=== PATIENT | female | born 1985 | race Caucasian/White ===

== ENCOUNTER 2017-01-16 14:17 | Outpatient (CLI) | payer BC ==
[~2017-01-16] VITALS: Ht 162.6 cm; Wt 76.0 kg
[2017-01-16 14:29] VITALS: BP 121/85
[2017-01-16 15:59] VITALS: BP 130/78
--- NOTE | 2017-01-16 16:16 | REP ---
Clinical: Vaginal bleeding. Technique: Transabdominal and transvaginal obstetrical ultrasound with color Doppler evaluation. Findings: Examination demonstrates a single live intrauterine in cephalic presentation. heart rate equals 140 beats per minute. The placenta is identified anteriorly and grade 1 without evidence for placenta previa or abruption. Amniotic fluid volume is within normal limits (BHAVANA=13.6). Cervix measures 3.4 cm length and appears closed. A posterior/left lateral subchorionic hemorrhage is identified in the lower uterine segment measuring approximately 10.6 x 5.4 x 8.0 cm roughly 1.7 cm from the closed internal os. Impression: Left lower uterine segment subchorionic hemorrhage. Live intrauterine in cephalic presentation. Signed by Nadeem Mejia MD 01/16/2017 04:07 P
[2017-01-16 16:22] LABS: MEAN CORPUSCULAR HEMOGLOBIN 30.3 pg (27.0-33.0); MEAN CORPUSCULAR HGB CONC 33.3 g/dl (32.0-36.5); MEAN CORPUSCULAR VOLUME 91.2 fl (80.0-96.0); RED CELL DISTRIBUTION WIDTH 12.7 % (11.5-14.5); WHITE BLOOD COUNT 13.3 K/mm3 (4.0-10.0)
[2017-01-16 17:48] VITALS: BP 132/81
[2017-01-16 21:24] VITALS: BP 117/71
[2017-01-16 23:36] VITALS: BP 117/73
[2017-01-17 03:36] VITALS: BP 121/60
[2017-01-17 07:05] VITALS: BP 115/72
--- NOTE | 2017-01-17 07:52 | IPN ---
DATE: 01/17/2017 REASON FOR VISIT: Vaginal bleeding at 24 plus weeks. HISTORY AND HOSPITAL COURSE: This patient is a 31-year-old, 1, para 0, who presents as an unregistered patient at 24 weeks 3 days estimated gestational age by last menstrual period confirmed by a first trimester ultrasound with acute onset of vaginal bleeding. She reports while at work she noticed leakage of watery fluid. She assessed herself and was noted to have large amounts of active vaginal bleeding. She denied any trauma, any recent intercourse, cramping or contractions. She had noted movement earlier in the day. She then presented to labor and delivery for evaluation. During her evaluation in labor and delivery, she was noted to have a reassuring tracing with prolonged monitoring and no contractions on the tocometer. Under sterile speculum exam, she was noted to have approximately 70 mL of blood and clot that appeared to be coming from the cervical os. There was no active bleeding at that time. She was further evaluated with pelvic ultrasound which demonstrated a 10x5x8 cm subchorionic hemorrhage. Her cervical length was 3.4. She was monitored overnight and had scant amount of vaginal bleeding. Her fetus remained reassuring on nonstress test. She was eventually discharged home in stable condition. She was instructed to follow up with Dr. Khalil, her primary drywall metal stud worker. Her course has been unremarkable. She initiated care in the first trimester and has been appropriate throughout. She sees Dr. Deyanira Khalil in [place]. PAST MEDICAL HISTORY: None. PAST SURGICAL HISTORY: She has had a tonsillectomy, varicose vein. PAST OBSTETRICAL HISTORY: She is a 1. MEDICATIONS: vitamins. Vitamin D. ALLERGIES: No known drug allergies. SOCIAL HISTORY: Denies any alcohol, tobacco or drug use during . She is currently and lives in [place] with her . PHYSICAL EXAMINATION: Her vital signs are stable. She is afebrile. She had a reassuring heart rate tracing with prolonged monitoring greater than 16 hours. General Appearance: Is well appearing. No acute distress. Lungs: Clear to auscultation bilaterally. Cardiovascular: Heart regular rate and rhythm. Abdomen: Soft. Gravid. Nontender. Sterile Speculum Exam: There was approximately 70 mL of clot and blood. No active bleeding coming from the cervix. There was a degree of mucus from the cervix, but no active bleeding. Cervix was closed, long. LABS: She had a Kleihauer-Betke which was 0. Fibrinogen was 457. Her hemoglobin and hematocrit (H and H) was hemoglobin of 11.6 and hematocrit 34.7. Her platelets were 197. White count was 13.3. IMAGING: She had a pelvic ultrasound demonstrating amniotic fluid of 13.6. Her cervical length measured at 3.4. She had a posterolateral left lateral subchorionic hemorrhage in the lower uterine segment approximately 1.7 cm from the cervical os that measured 10.6x5.4x8.0. The fetus was in cephalic presentation. ASSESSMENT: 1. 31-year-old, 1, at 24 weeks 3 days with a clinical abruption, currently stable. 2. Reassuring status. PLAN: 1. After prolonged observation and no further bleeding, the patient was discharged home and given instructions to followup with her primary drywall metal stud worker, Dr. Khalil, within the week. 2. To remain on pelvic rest. 3. She was given instructions to limit her lifting to 15-20 pounds. 4. labor and bleeding precautions.
== END 2017-01-17 07:05 | disposition home or self-care (01) ==
LOC: M LDO 14:17
PROVIDERS: ATTEND Obstetrics & Gynecology
DX: O26.852 Spotting complicating pregnancy, second trimester (principal); Z3A.24 24 weeks gestation of pregnancy